=== PATIENT | male | born 1970 | race Two or more races ===

== ENCOUNTER 2019-09-21 13:23 | Emergency (ER) | payer BC ==
--- NOTE | 2019-09-21 15:03 | EDM.PDOC ---
ED HPI GENERAL MEDICAL PROBLEM - General Chief Complaint: General Stated Complaint: INFECTION IN TOOTH AND JAW Time Seen by Provider: 09/21/19 14:57 Source of Information: Reports: Patient History Limitations: Reports: No Limitations - History of Present Illness INITIAL COMMENTS - FREE TEXT/NARRATIVE: Is a 49-year-old male who has extensive dental caries who is complaining of left lower jaw pain with swallowing that is been going on for the last month but worse for the last 2 days. he is trying to get into see a dentist but has not been successful so far. Not taking any medicines for his current symptoms. Any fever or shaking chills. Denies any swelling to his airway or trouble breathing or eating. Onset: Unknown/Unsure Duration: Getting Worse Location: Reports: Face Quality: Reports: Ache Severity: Mild Improves with: Reports: None Worsens with: Reports: Eating Associated Symptoms: Reports: No Other Symptoms left tooth Pain Score (Numeric/FACES): 4 - Related Data Allergies Allergy/AdvReac Type Severity Reaction Status Date / Time No Known Allergies Allergy Verified 09/21/19 13:50 Home Meds: Home Meds . [No Known Home Meds] 09/21/19 [History] Past Medical History - Past Health History Medical/Surgical History: Denies Medical/Surgical History Gastrointestinal History: Reports: GERD - Past Surgical History GI Surgical History: Reports: Cholecystectomy Social & Family History - Family History Family Medical History: Noncontributory - Tobacco Use Smoking Status *Q: Never Smoker Second Hand Smoke Exposure: No - Recreational Drug Use Recreational Drug Use: No ED ROS GENERAL - Review of Systems Review Of Systems: Comprehensive ROS is negative, except as noted in HPI. ED EXAM, GENERAL - Physical Exam Exam: See Below Free Text/Narrative:: Exam: See Below Exam Limited By: No Limitations Head: Atraumatic Neck: Normal Inspection. No: Carotid Bruit, Lymphadenopathy (R) Respiratory/Chest: No Respiratory Distress, Extremities: Normal Inspection. Neurological: Alert, Oriented, Normal Cognition Psychiatric: Normal Affect Skin Exam: Warm Lymphatic: No Adenopathy Course - Vital Signs Last Recorded V/S: Last Vital Signs Temp 36.7 C 09/21/19 13:48 Pulse 53 L 09/21/19 13:48 Resp 18 09/21/19 13:48 BP 142/85 H 09/21/19 13:48 Pulse Ox 97 09/21/19 13:48 Departure - Departure Time of Disposition: 15:04 Disposition: Home, Self-Care 01 Condition: Good Clinical Impression: Periapical abscess with facial involvement - Discharge Information Instructions: Dental Abscess, [id number] Referrals: PCP,None [Primary Care Provider] - Additional Instructions: Tylenol and ibuprofen as needed. Follow-up with a dentist as soon as possible. Clindamycin as directed. Return to ER if worse. The following information is given to patients seen in the emergency department who are being discharged to home. This information is to outline your options for follow-up care. We provide all patients seen in our emergency department with a follow-up referral. The need for follow-up, as well as the timing and circumstances, are variable depending upon the specifics of your emergency department visit. If you don't have a primary care physician on staff, we will provide you with a referral. We always advise you to contact your personal physician following an emergency department visit to inform them of the circumstance of the visit and for follow-up with them and/or the need for any referrals to a consulting specialist. The emergency department will also refer you to a specialist when appropriate. This referral assures that you have the opportunity for follow-up care with a specialist. All of these measure are taken in an effort to provide you with optimal care, which includes your follow-up. Under all circumstances we always encourage you to contact your private physician who remains a resource for coordinating your care. When calling for follow-up care, please make the office aware that this follow-up is from your recent emergency room visit. If for any reason you are refused follow-up, please contact the [facility] Emergency Department at and asked to speak to the emergency department charge nurse. Sepsis Event Note - Evaluation Sepsis Screening Result: No Definite Risk - Focused Exam Vital Signs: Vital Signs Temp Pulse Resp BP Pulse Ox 09/21/19 13:48 36.7 C 53 L 18 142/85 H 97 Date Exam was Performed: 09/21/19 Time Exam was Performed: 14:57
== END 2019-09-21 15:17 | disposition home or self-care (01) ==
LOC: MW.ED 13:23
DX: K04.7 Periapical abscess without sinus (principal)
CPT/HCPCS: 99283